=== PATIENT | female | born 1970 | race Caucasian/White ===

== ENCOUNTER 2021-04-19 11:19 | Observation (INO) | payer OTHER, SELFPAY ==
--- OUTSIDE RECORDS SUMMARY | 2021-04-19 11:22 | XMS REPORT | Continuity of Care Document ---
:1970 Author Organization [facility] t Address [address] [place] [address] Care Team Providers Name Role Phone Mary Ying Attending Clinician [phone] Cameron Gastelum MD Attending Clinician Problems This patient has no known problems. Allergies, Adverse Reactions, Alerts This patient has no known allergies or adverse reactions. Medications This patient has no known medications. Procedures This patient has no known procedures. Encounters Start End Encounter Admission Attending Care Care Encounter Source Date/Time Date/Time Type Type Clinicians Facility Department ID 2021-01-21 2021-01-21 Outpatient [facility] [id number] 00:00:00 00:00:00 , Wanda [id number] Mary [id number] 2020-05-11 2020-05-11 Office ROSENDO Gastelum [id number] 09:43:12 11:33:48 Visit [facility]il [facility] [id number] [place] [id number] [place] [phone] nal 092 Building Results This patient has no known results.
[2021-04-19 12:22] LABS: Absolute Lymphocytes (CBC) 2.2 K/uL (0.7-4.9); Hematocrit 41.5 % (36.0-45.0); MPV 9.6 fL (7.6-11.3); RBC Red Blood Cell Count 4.85 M/uL (3.86-4.86)
--- NOTE | 2021-04-19 12:24 | EDPHYS ---
Physician Documentation [facility] Name: Cindy Crowley Age: 50 yrs Sex: Female : 1970 Arrival Date: 04/19/2021 Time: 11:26 Bed 18 Private MD: ED Physician Tia Vera HPI: 04/19 12:19 This 50 yrs old Female presents to ER via Ambulatory with complaints of Chest jr8 Pain. 12:19 The patient or guardian reports chest pain that is located primarily in the substernal jr8 area. Onset: acutely, just prior to arrival. The pain radiates to the left arm, left jaw. Associated signs and symptoms: Pertinent positives: lightheadedness. The chest pain is described as squeezing. Duration: The patient or guardian reports a single episode, that is still ongoing, but improving. Modifying factors: The symptoms are alleviated by nothing. the symptoms are aggravated by exertion. Severity of pain: At its worst the pain was moderate in the emergency department the pain has improved mildly. The patient has not experienced similar symptoms in the past. The patient has not recently seen a physician. 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 - Social history:: Smoking status: Patient reports the use of cigarette tobacco products, denies chronic smoking, but will smoke occasionally. ROS: 12:19 Eyes: Negative for injury, pain, redness, and discharge, ENT: Negative for injury, jr8 pain, and discharge, Neck: Negative for injury, pain, and swelling, Abdomen/GI: Negative for abdominal pain, nausea, vomiting, diarrhea, and constipation, Back: Negative for injury and pain, MS/Extremity: Negative for injury and deformity, Skin: Negative for injury, rash, and discoloration, Neuro: Negative for headache, weakness, numbness, tingling, and seizure. 12:19 Respiratory: Negative for shortness of breath, cough, wheezing, and pleuritic chest pain. 12:19 Cardiovascular: Positive for chest pain, Negative for edema, orthopnea, palpitations, paroxysmal nocturnal dyspnea. Exam: 12:19 Constitutional: This is a well developed, well nourished patient who is awake, alert, jr8 and in no acute distress. Neck: Trachea midline, no thyromegaly or masses palpated, and no cervical lymphadenopathy. Supple, full range of motion without nuchal rigidity, or vertebral point tenderness. No Meningismus. Chest/axilla: Normal chest wall appearance and motion. Nontender with no deformity. No lesions are appreciated. Cardiovascular: Regular rate and rhythm with a normal S1 and S2. No gallops, murmurs, or rubs. Normal PMI, no JVD. No pulse deficits. Respiratory: Lungs have equal breath sounds bilaterally, clear to auscultation and percussion. No rales, rhonchi or wheezes noted. No increased work of breathing, no retractions or nasal flaring. Abdomen/GI: Soft, non-tender, with normal bowel sounds. No distension or tympany. No guarding or rebound. No evidence of tenderness throughout. Back: No spinal tenderness. No costovertebral tenderness. Full range of motion. Skin: Warm, dry with normal turgor. Normal color with no rashes, no lesions, and no evidence of cellulitis. MS/ Extremity: Pulses equal, no cyanosis. Neurovascular intact. Full, normal range of motion. Neuro: Awake and alert, GCS 15, oriented to person, place, time, and situation. Cranial nerves II-XII grossly intact. Motor strength 5/5 in all extremities. Sensory grossly intact. Cerebellar exam normal. Normal gait. 12:19 ECG was reviewed by the Attending Physician. [facility] Vital Signs: 11:44 BP 156 / 100; Pulse 57; Resp 15; Temp 97.7; Pulse Ox 99% ; Weight 88.9 kg; Height 5 ft. ss 5 in. (165.10 cm); Pain 5/10; 12:00 BP 157 / 95; Pulse 55; Resp 16 S; Pulse Ox 99% on R/A; ca1 13:00 BP 124 / 86; Pulse 56; Resp 16 S; Pulse Ox 97% on R/A; ca1 14:00 BP 136 / 63; Pulse 48; Resp 18 S; Pulse Ox 99% on R/A; ca1 15:00 BP 124 / 82; Pulse 48; Resp 15 S; Pulse Ox 99% on R/A; ca1 16:00 BP 136 / 77; Pulse 50; Resp 14 S; Pulse Ox 98% on R/A; ca1 11:44 Body Mass Index 32.62 (88.90 kg, 165.10 cm) ss MDM: 12:08 Patient medically screened. jr8 12:22 The patient was given aspirin in the Emergency Department. Data reviewed: vital signs, [facility] nurses notes, lab test result(s), EKG, radiologic studies, plain films. Data interpreted: Pulse oximetry: on room air is 99 %. Interpretation: normal. Counseling: I had a detailed discussion with the patient and/or guardian regarding: the historical points, exam findings, and any diagnostic results supporting the discharge/admit diagnosis, lab results, radiology results, the need for further work-up and treatment in the hospital. 04/19 12:08 Order name: Basic Metabolic Panel; Complete Time: 12:59 [facility] 04/19 12:08 Order name: CBC with Diff; Complete Time: 12:59 [facility] 04/19 12:08 Order name: LFT's; Complete Time: 12:59 [facility] 04/19 12:08 Order name: Magnesium; Complete Time: 12:59 [facility] 04/19 12:08 Order name: NT PRO-BNP; Complete Time: 12:59 [facility] 04/19 12:08 Order name: PT-INR; Complete Time: 12:59 [facility] 04/19 12:08 Order name: Troponin (emerg Dept Use Only); Complete Time: 12:59 [facility] 04/19 13:13 Order name: Troponin I [facility] 04/19 13:17 Order name: Basic Metabolic Panel [facility] 04/19 13:17 Order name: Basic Metabolic Panel [facility] 04/19 13:17 Order name: Lipid Profile [facility] 04/19 13:17 Order name: Lipid Profile [facility] 04/19 13:17 Order name: Troponin I [facility] 04/19 13:17 Order name: Troponin I [facility] 04/19 12:08 Order name: XRAY Chest (1 view); Complete Time: 13:51 [facility] 04/19 12:08 Order name: EKG; Complete Time: 12:10 [facility] 04/19 12:08 Order name: Cardiac monitoring; Complete Time: 12:09 [facility] 04/19 13:17 Order name: CONS Physician Consult [facility] 04/19 13:17 Order name: Heart Healthy [facility] 04/19 13:17 Order name: Troponin I [facility] 04/19 13:18 Order name: Echo with Doppler [facility] 04/19 13:18 Order name: EKG Electrocardiogram [facility] 04/19 13:18 Order name: EKG Electrocardiogram [facility] 04/19 13:18 Order name: EKG Electrocardiogram [facility] 04/19 13:18 Order name: CBC with Automated Diff [facility] 04/19 13:18 Order name: CBC with Automated Diff [facility] 04/19 13:46 Order name: COVID-19 : Document "Date of Symptom Onset" if Symptomatic. ca1 04/19 15:31 Order name: SARS-COV-2 RT PCR; Complete Time: 15:41 [facility] 04/19 12:08 Order name: EKG - Nurse/Tech; Complete Time: 12:09 8 04/19 12:08 Order name: IV Saline Lock; Complete Time: 12: jr8 04/19 12:08 Order name: Labs collected and sent; Complete Time: 12: jr8 04/19 12:08 Order name: O2 Per Protocol; Complete Time: 12: jr8 04/19 12:08 Order name: O2 Sat Monitoring; Complete Time: 12:09 EC:19 Rate is 52 beats/min. Rhythm is regular, Sinus bradycardia. QRS [place] is Normal. [place] jr8 interval is normal at 112 msec. QRS interval is normal at 82 msec. QT interval is normal at 437 msec. No Q waves. T waves are Inverted in leads I, II, III, aVF, V3, V4, V5, V6. T waves are Flattened in lead aVL. No ST changes noted. Clinical impression: Cardiac ischemia and Sinus bradycardia. Interpreted by me. Reviewed by me. Administered Medications: 12:13 Drug: Aspirin Chewable Tablet 324 mg Route: PO; ca1 13:45 Follow up: Response: No adverse reaction; Pain is decreased ca1 12:15 Drug: Nitroglycerin 0.4 mg Route: Sublingual; ca1 12:20 Drug: Nitroglycerin 0.4 mg Route: Sublingual; ca1 13:45 Follow up: Response: No adverse reaction; Pain is decreased ca1 Disposition: 04/20 14:37 Co-signature as Attending Physician, Tia Vera MD. ma2 Disposition: 04/19/21 12:23 Hospitalization ordered by Tia Denis for Observation. Preliminary diagnosis are Unstable angina, Abnormal electrocardiogram [ECG] [EKG]. - Bed requested for Telemetry/MedSurg (observation). - Status is Observation. ca1 - Condition is Stable. - Problem is new. - Symptoms have improved. Signatures: Dispatcher [employer] EDMS Danya Calle RN RN dw Odessa Cast RN RN ss Rafat Chavira, ADDIE REAL jr8 Tia Vera MD MD tn2 Neli Suggs RN RN ca1 Corrections: (The following items were deleted from the chart) 04/19 12:23 12:23 Hospitalization Ordered by Tia Denis MD for Observation. Preliminary jr8 diagnosis is Unstable angina. Bed requested for Telemetry/MedSurg (observation). Status is Observation. Condition is Stable. Problem is new. Symptoms have improved. jr8 16:33 12:23 04/19/2021 12:23 Hospitalization Ordered by Tia Denis MD for Observation. dw Preliminary diagnosis is Unstable angina; Abnormal electrocardiogram [ECG] [EKG]. Bed requested for Telemetry/MedSurg (observation). Status is Observation. Condition is Stable. Problem is new. Symptoms have improved. jr8 17:02 16:33 04/19/2021 12:23 Hospitalization Ordered by Tia Denis MD for Observation. ca1 Preliminary diagnosis is Unstable angina; Abnormal electrocardiogram [ECG] [EKG]. Bed requested for Telemetry/MedSurg (observation). Status is Observation. Condition is Stable. Problem is new. Symptoms have improved. dw
--- NOTE | 2021-04-19 12:24 | ER ---
Nurse's Notes [facility] Name: Cindy Crowley Age: 50 yrs Sex: Female : 1970 Arrival Date: 04/19/2021 Time: 11:26 Bed 18 Private MD: Diagnosis: Unstable angina;Abnormal electrocardiogram [ECG] [EKG] Presentation: 04/19 11:44 Chief complaint: Patient states: Chest pain that began 15 minutes ago while shopping at [employer]. Pt reports that the pain has improved, but feels slight numbness to her L arm and L side of neck. Coronavirus screen: Client denies travel out of the [place] in the last 14 days. Ebola Screen: Patient denies exposure to infectious person. Patient denies travel to an Ebola-affected area in the 21 days before illness onset. Initial Sepsis Screen: Does the patient meet any 2 criteria? No. Patient's initial sepsis screen is negative. Does the patient have a suspected source of infection? No. Patient's initial sepsis screen is negative. Risk Assessment: Do you want to hurt yourself or someone else? Patient reports no desire to harm self or others. Onset of symptoms was April 19, 2021. 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 - Social history:: Smoking status: Patient reports the use of cigarette tobacco products, denies chronic smoking, but will smoke occasionally. Screenin:55 Abuse screen: Denies threats or abuse. Denies injuries from another. Nutritional ca1 screening: No deficits noted. Tuberculosis screening: No symptoms or risk factors identified. Fall Risk IV access (20 points). Assessment: 11:55 General: Appears in no apparent distress. comfortable, Behavior is calm, cooperative, ca1 appropriate for age. Pain: Complains of pain in anterior aspect of left upper chest Pain radiates to left arm and neck Pain currently is 5 out of 10 on a pain scale. at worst was 10 out of 10 on a pain scale. Quality of pain is described as pressure, squeezing, Pain began 30 min ago. Is continuous. Neuro: Level of Consciousness is awake, alert, obeys commands, Oriented to person, place, time, situation. Cardiovascular: Heart tones S1 S2 present Capillary refill < 3 seconds Patient's skin is warm and dry. Rhythm is sinus bradycardia. Cardiovascular: Reports chest pain, lightheadedness. Respiratory: Airway is patent Respiratory effort is even, unlabored, Respiratory pattern is regular, symmetrical, Breath sounds are clear bilaterally. GI: Abdomen is flat, non-distended, Bowel sounds present X 4 quads. Abd is soft and non tender X 4 quads. : No signs and/or symptoms were reported regarding the genitourinary system. EENT: No signs and/or symptoms were reported regarding the EENT system. Derm: Skin is intact, is healthy with good turgor, Skin is pink, warm \T\ dry. Musculoskeletal: Circulation, motion, and sensation intact. Capillary refill < 3 seconds. 12:55 Reassessment: Patient appears in no apparent distress at this time. Patient and/or ca1 family updated on plan of care and expected duration. Pain level reassessed. Patient is alert, oriented x 3, equal unlabored respirations, skin warm/dry/pink. 13:43 Reassessment: Patient appears in no apparent distress at this time. Patient and/or ca1 family updated on plan of care and expected duration. Pain level reassessed. Patient is alert, oriented x 3, equal unlabored respirations, skin warm/dry/pink. 14:30 Reassessment: Patient appears in no apparent distress at this time. Patient and/or ca1 family updated on plan of care and expected duration. Pain level reassessed. Patient is alert, oriented x 3, equal unlabored respirations, skin warm/dry/pink. 15:20 Reassessment: Patient appears in no apparent distress at this time. Patient and/or ca1 family updated on plan of care and expected duration. Pain level reassessed. Patient is alert, oriented x 3, equal unlabored respirations, skin warm/dry/pink. 16:10 Reassessment: Patient appears in no apparent distress at this time. Patient and/or ca1 family updated on plan of care and expected duration. Pain level reassessed. Patient is alert, oriented x 3, equal unlabored respirations, skin warm/dry/pink. Vital Signs: 11:44 BP 156 / 100; Pulse 57; Resp 15; Temp 97.7; Pulse Ox 99% ; Weight 88.9 kg; Height 5 ft. ss 5 in. (165.10 cm); Pain 5/10; 12:00 BP 157 / 95; Pulse 55; Resp 16 S; Pulse Ox 99% on R/A; ca1 13:00 BP 124 / 86; Pulse 56; Resp 16 S; Pulse Ox 97% on R/A; ca1 14:00 BP 136 / 63; Pulse 48; Resp 18 S; Pulse Ox 99% on R/A; ca1 15:00 BP 124 / 82; Pulse 48; Resp 15 S; Pulse Ox 99% on R/A; ca1 16:00 BP 136 / 77; Pulse 50; Resp 14 S; Pulse Ox 98% on R/A; ca1 11:44 Body Mass Index 32.62 (88.90 kg, 165.10 cm) ss ED Course: 11:26 Patient arrived in ED. bp1 11:46 Triage completed. ss 11:47 Arm band placed on right wrist. ss 11:55 Patient has correct armband on for positive identification. Placed in gown. Bed in low ca1 position. Call light in reach. Side rails up X2. teletypesetter monitor on. Pulse ox on. NIBP on. Warm blanket given. 12:08 Rafat Chavira PA is PHCP. jr8 12:08 Tia Vera MD is Attending Physician. jr8 12:08 Neli Suggs, RN is Primary Nurse. ca1 12:08 No provider procedures requiring assistance completed. Initial lab(s) drawn, by or, ca1 sent to lab. EKG done, by ED staff, reviewed by Rafat REAL. Inserted saline lock: 22 gauge in right antecubital area, using aseptic technique. Blood collected. Patient maintains SpO2 saturation greater than 95% on room air. 12:23 Tia Denis MD is Hospitalizing Provider. jr8 13:24 XRAY Chest (1 view) In Process Unspecified. EDMS 16:52 Patient admitted, IV remains in place. ca1 Administered Medications: 12:13 Drug: Aspirin Chewable Tablet 324 mg Route: PO; ca1 13:45 Follow up: Response: No adverse reaction; Pain is decreased ca1 12:15 Drug: Nitroglycerin 0.4 mg Route: Sublingual; ca1 12:20 Drug: Nitroglycerin 0.4 mg Route: Sublingual; ca1 13:45 Follow up: Response: No adverse reaction; Pain is decreased ca1 Outcome: 12:23 Decision to Hospitalize by Provider. rashad 16:52 Admitted to Med/surg accompanied by tech, via wheelchair, room 209, with chart, Report ca1 called to AKASH Ham 16:53 Condition: stable ca1 17:02 Patient left the ED. ca1 Signatures: Dispatcher [employer] EDMS Odessa Cast RN RN Rafat Chavira PA PA jr8 Neli Suggs RN RN [facility] Corrections: (The following items were deleted from the chart) 11:53 11:44 Acuity: NAVJOT 3 ss
[2021-04-19] MEDS ORDERED: NITROGLYCERIN 0.4 MG/TAB SL ONE (12:28)
[2021-04-19] MEDS ORDERED: ASPIRIN 81 MG CHEWABLE TABLET ONE (12:31)
[2021-04-19 12:34] LABS: Protime INR 0.94
[2021-04-19 12:54] LABS: ALT/SGPT 26 U/L (12-78); AST/SGOT 18 U/L (15-37); Albumin 4.3 g/dL (3.4-5.0); Alkaline Phosphatase 81 U/L (45-117); BUN Blood Urea Nitrogen 17 mg/dL (7-18); Bicarbonate 29 mmol/L (21-32); Bilirubin Direct 0.1 mg/dL (0-0.2); Bilirubin Total 0.5 mg/dL (0.2-1.0); Glucose Level 84 mg/dL (74-106); Magnesium 2.2 mg/dL (1.8-2.4); NT PRO-BNP 18 pg/mL (<125); Potassium 3.4 mmol/L (3.5-5.1); Protein, Total 7.7 g/dL (6.4-8.2); Sodium Level 140 mmol/L (136-145); Troponin (Emerg Dept Use Only) < 0.02 ng/mL (0.0-0.045)
[2021-04-19] MEDS ORDERED: MORPHINE 4 MG/ML SYR IV PRN (13:13)
[2021-04-19] MEDS ORDERED: CLOPIDOGREL 75 MG TABLET PO ONE (13:13)
--- NOTE | 2021-04-19 13:50 | RAD REPORT ---
EXAM DESCRIPTION: RAD - Chest Single View - 04/19/2021 1:24 pm CLINICAL HISTORY: CHEST PAIN COMPARISON: None TECHNIQUE: AP portable chest image was obtained 04/19/2021 1:24 pm . FINDINGS: Lung volumes are relatively low accentuating interstitial pattern. Body habitus and portab le technique further accentuate the chest findings. No peripheral mass or consolidation. No significant failure or volume overload. Heart and vasculature are normal. No measurable pleural effusion and no pneumothorax. No acute bony abnormality seen. No acute aortic findings suspected. IMPRESSION: No acute cardiopulmonary process.
[2021-04-19 17:17] VITALS: O2SAT 98
[2021-04-19 18:28] VITALS: BMI 32.5
[2021-04-19] MEDS: ENOXAPARIN 100 MG/ML SYR SQ SCH (20:21)
[2021-04-19] MEDS ORDERED: HYDRALAZINE HCL 20 MG/ML VIAL IV PRN (20:42)
[2021-04-19] MEDS: METOPROLOL TAR 50 MG TAB PO SCH (20:47)
[2021-04-19] MEDS ORDERED: ATORVASTATIN 40 MG TAB PO SCH (21:00)
[2021-04-20] MEDS: ACETAMINOPHEN 500 MG TAB PO PRN ×2 (02:11→08:55)
[2021-04-20 06:07] LABS: Absolute Lymphocytes (CBC) 2.7 K/uL (0.7-4.9); Hematocrit 38.7 % (36.0-45.0); Lymphocytes % 36.7 % (15.3-44.8); MPV 9.2 fL (7.6-11.3); RBC Red Blood Cell Count 4.53 M/uL (3.86-4.86)
[2021-04-20 06:35] LABS: Potassium 3.4 mmol/L (3.5-5.1)
[2021-04-20] MEDS: METOPROLOL TAR 50 MG TAB PO SCH (08:50)
[2021-04-20] MEDS: ENOXAPARIN 100 MG/ML SYR SQ SCH (08:52)
[2021-04-20] MEDS ORDERED: ASPIRIN EC 81 MG TAB PO SCH (09:00)
[2021-04-20] MEDS ORDERED: CLOPIDOGREL 75 MG TABLET PO SCH (09:00)
--- NOTE | 2021-04-20 09:44 | EKG ---
Test Date: 2021-04-19 Test Time: 20:35:39 Solution Analyst: RT Sutherland MEASUREMENT RESULTS: Intervals: Rate: 53 ND: 126 QRSD: 84 QT: 502 QTc: 471 [place]: P: 56 ND: 126 QRS: 62 T: 225 INTERPRETIVE STATEMENTS: Sinus bradycardia Low voltage QRS Cannot rule out Anterior infarct, age undetermined ST & T wave abnormality, consider inferolateral ischemia Abnormal ECG No previous ECG available for comparison Electronically Signed On 04-20-21 09:43:33 CDT by Javan Dodge
--- NOTE | 2021-04-20 09:46 | EKG ---
Test Date: 2021-04-19 Test Time: 12:00:02 Tobacco Packing Machine Operator: ERIK MEASUREMENT RESULTS: Intervals: Rate: 52 OR: 112 QRSD: 82 QT: 470 QTc: 437 [place]: P: 58 OR: 112 QRS: 47 T: 244 INTERPRETIVE STATEMENTS: Sinus bradycardia Low voltage QRS ST & T wave abnormality, consider inferolateral ischemia Abnormal ECG No previous ECG available for comparison Electronically Signed On 04-20-21 09:43:47 CDT by Javan Dodge
--- NOTE | 2021-04-20 10:06 | P.DS ---
Discharge Date: 04/20/21 Disposition: ROUTINE DISCHARGE Reason for Admission: Chest pain rule out acute coronary syndrome - Problems (1) Chest pain, rule out acute myocardial infarction Current Visit: Yes Status: Acute (2) History of hypertension Current Visit: Yes Status: Acute Brief History of Present Illness: Patient is a 50-year-old female came to the hospital with chest discomfort. Pain was in the sternal region and radiated to her left side of her neck and her left arm. She also had diaphoresis and shortness of breath. She has had similar chest pain in the past. Her initial troponins and EKG not show any substantial changes from her prior EKGs. It was noted that she had some T-wave inversion. She was seen as [facility] few years ago with similar complaints and was sent to what sounds like [facility]. She had cardiac workup done including stress test which did not reveal any abn ormality. She did not have a cardiac catheterization. She was discharged for outpatient follow-up. At this time, will admit her to the hospital to be ruled out for acute coronary syndrome. Cardiology consultation has been obtained as well. Vital Signs/Physical Exam: Temp Pulse Resp BP Pulse Ox 97.8 F 48 L 19 144/77 H 100 04/20/21 10:06 04/20/21 10:06 04/20/21 10:06 04/20/21 10:06 04/20/21 10:06 Laboratory Data at Discharge: WBC 7.40 K/uL (4.3-10.9) 04/20/21 05:48 Hgb 13.1 g/dL (12.0-15.0) 04/20/21 05:48 Hct 38.7 % (36.0-45.0) 04/20/21 05:48 Plt Count 149 K/uL (152-406) L 04/20/21 05:48 PT 10.8 SECONDS (9.5-12.5) 04/19/21 12:13 INR 0.94 04/19/21 12:13 Sodium 142 mmol/L (136-145) 04/20/21 05:48 Potassium 3.4 mmol/L (3.5-5.1) L 04/20/21 05:48 BUN 17 mg/dL (7-18) 04/20/21 05:48 Creatinine 1.08 mg/dL (0.55-1.3) 04/20/21 05:48 Glucose 79 mg/dL (74-106) 04/20/21 05:48 Magnesium 2.2 mg/dL (1.8-2.4) 04/19/21 12:13 Total Bilirubin 0.5 mg/dL (0.2-1.0) 04/19/21 12:13 AST 18 U/L (15-37) 04/19/21 12:13 ALT 26 U/L (12-78) 04/19/21 12:13 Alkaline Phosphatase 81 U/L (45-117) 04/19/21 12:13 Troponin I < 0.02 ng/mL (0.0-0.045) 04/20/21 05:48 Triglycerides 216 mg/dL (<150) H 04/20/21 05:48 Cholesterol 224 mg/dL (<200) H 04/20/21 05:48 HDL Cholesterol 30 mg/dL (40-60) L 04/20/21 05:48 Cholesterol/HDL Ratio 7.47 04/20/21 05:48 Home Medications: Levothyroxine [Synthroid*] 75 mcg PO DAILY 04/19/21 Losartan Potassium [Cozaar] 25 mg PO DAILY 04/19/21 hydroCHLOROthiazide [Hydrochlorothiazide*] 25 mg PO DAILY 04/19/21 Physician Discharge Instructions: OK TO DC IV AND DC HOME FOLLOW-UP WITH PRIMARY CARE PROVIDER IN 1-2 WEEKS FOLLOW-UP WITH CARDIOLOGY IN 1-2 WEEKS RETURN TO THE ER IF symptoms worsen CALL or TEXT DR. HENDERSON AT [phone] IF ANY QUESTIONS REGARDING HOSPITAL STAY. PLEASE CALL THE FLOOR AT [phone] IF ANY MEDICATION OR NURSING QUESTIONS. Diet: AHA Activity: Fall precautions Followup: Unknown,U [Primary Care Provider] -
--- NOTE | 2021-04-20 10:06 | P.HP ---
Certification for Inpatient Patient admitted to: Observation With expected LOS: <2 Midnights Patient will require the following post-hospital care: None Practitioner: I am a practitioner with admitting privileges, knowledge of patient current condition, hospital course, and medical plan of care. Services: Services provided to patient in accordance with Admission requirements found in Title 42 Section 412.3 of the Code of Federal Regulations Patient History Date of Service: 04/19/21 Reason for admission: Chest pain rule out acute coronary syndrome History of Present Illness: Patient is a 50-year-old female came to the hospital with chest discomfort. Pain was in the sternal region and radiated to her left side of her neck and her left arm. She also had diaphoresis and shortness of breath. She has had similar chest pain in the past. Her initial troponins and EKG not show any substantial changes from her prior EKGs. It was noted that she had some T-wave inversion. She was seen as [facility] few years ago with similar complaints and was sent to what sounds like [facility]. She had cardiac workup done including stress test which did not reveal any abnormality. She did not have a cardiac catheterization. She was discharged for outpatient follow-up. At this time, will admit her to the hospital to be r uled out for acute coronary syndrome. Cardiology consultation has been obtained as well. Allergies codeine Allergy (Verified 04/19/21 15:11) Nausea/Vomiting Home Medications: Levothyroxine [Synthroid*] 75 mcg PO DAILY 04/19/21 Losartan Potassium [Cozaar] 25 mg PO DAILY 04/19/21 hydroCHLOROthiazide [Hydrochlorothiazide*] 25 mg PO DAILY 04/19/21 - Past Medical/Surgical History Has patient received pneumonia vaccine in the past: No Diabetic: No -: HTN -: Thyroidectomy -: - Family History Mother Medical History: Heart disease, Diabetes Father Medical History: Hypertension - Social History Smoking Status: Never smoker Place of Residence: Home Review of Systems 10-point ROS is otherwise unremarkable Physical Examination - Vital Signs Temperature: 97.8 F Blood Pressure: 144/77 Pulse: 48 Respirations: 19 Pulse Ox (%): 100 - Physical Exam General: Alert, In no apparent distress, Oriented x3 HEENT: Atraumatic, PERRLA, Mucous membr. moist/pink, EOMI, Sclerae nonicteric Neck: Supple, 2+ carotid pulse no bruit, No LAD, Without JVD or thyroid abnormality Respiratory: Clear to auscultation bilaterally, Normal air movement Cardiovascular: Regular rate/rhythm, Normal S1 S2, No murmurs Gastrointestinal: Normal bowel sounds, Soft and benign, Non-distended, No tenderness Musculoskeletal: No clubbing, No swelling, No tenderness Integumentary: No rashes Neurological: Normal gait, Normal speech, Normal strength at 5/5 x4 extr, Normal tone, Sensation intact, Cranial nerves 3-12 intact, Normal affect Lymphatics: No axilla or inguinal lymphadenopathy - Studies Laboratory Data (last 24 hrs) 04/19/21 12:13: PT 10.8, INR 0.94 04/19/21 12:13: WBC 8.20, Hgb 13.7, Hct 41.5, Plt Count 185 04/19/21 12:13: Sodium 140, Potassium 3.4 L, BUN 17, Creatinine 1.44 H, Glucose 84, Magnesium 2.2, Total Bilirubin 0.5, AST 18, ALT 26, Alkaline Phosphatase 81 Assessment & Plan - Problems (Diagnosis) (1) Chest pain, rule out acute myocardial infarction Current Visit: Yes Status: Acute (2) History of hypertension Current Visit: Yes Status: Acute - Plan 1. Serial troponins and EKG 2. Appreciate Cardiology consultation 3. Echocardiogram and stress test as an outpatient if cardiology is agreeable 4. Anti-platelet therapy, anti coagulation, beta-jesus, statin, and O2 as needed 5. IV morphine for pain 6. Nitro p.r.n. Discharge Plan: Home Plan to discharge in: 24 Hours - Advance Directives Does patient have a Living Will: No Does patient have a Durable POA for Healthcare: No - Code Status/Comfort Care Code Status Assessed: Yes Code Status: Full Code Critical Care: No Time Spent Managing PTS Care (In Minutes): 45
--- NOTE | 2021-04-20 11:54 | CON ---
Date of Consultation: 04/19/2021 Reason For Consultation: Admitted to Dr. Denis on 04/19/2021 for chest pain. I saw the patient on . History Of Present Illness: Ms. Crowley is 50. Has a history of hypertension, hypothyroidism. Came in with 15 minutes episode with nausea, chest pain, and jaw pain [facility] When she came into the emergency room, her chest x-ray was normal, EKG was normal, blood work w as normal except for the creatinine of 1.44. She is known to have some renal insufficiency. She see luis f Ying, nurse practitioner in [place] for her primary care. She is now completely asymptomatic. Her symptoms were not exertional. This is her first episode. Does not have a family history of heart disease. Does not smoke. Does not have diabetes or dyslipidemia. Past Medical History: Includes hypertension and hypothyroidism. Allergies: INCLUDE CODEINE. Review of Systems: Negative. Social History: Negative. Family History: Negative. Medications: At home are none. Physical Examination: Vital Signs: Stable, afebrile. HEENT: Negative. Neck: Supple with no bruit. Chest: Clear. Cardiac: Revealed a regular rhythm and rate. No murmurs, gallops, or rubs. Abdomen: Benign. Extremities: Revealed no clubbing, cyanosis, or edema. Diagnostic Data: All normal. Chest x-ray was negative. Creatinine is 1.44. Impression And Plan: Chest pain that is very concerning for heart disease; however, EKG and chest x- ray, and troponin and BNP were all normal. She is pain-free now. This certainly could be coronary a rtery disease related or gastroesophageal reflux related. She does have a history of hypertension, o besity. Denied family history of diabetes or dyslipidemia or tobacco use. I am comfortable with her going home, but need to get a stress test, MPI outpatient as well as possible echocardiogram which w as done is normal. I think she should go home on a low-dose beta-jesus, aspirin, statin in additio n to whatever she takes at home, and I will see her in the office in the very near future. ANNETTE/MOOSE Voice ID: [id number] Report ID: [id number]
[2021-04-20 12:38] VITALS: BP 106/60; TEMP 98.2
--- NOTE | 2021-04-22 08:18 | ECHO ---
HEIGHT: 5 ft 5 in WEIGHT: 195 lb 15.855 oz DATE OF STUDY: 04/19/[address]: Tia Denis MD 2-DIMENSIONAL: YES M.MODE: YES DOPPLER: YES COLOR FLOW: YES TDS: NO PORTABLE: NO DEFINITY: NO BUBBLE STUDY: NO DIAGNOSIS: CHEST PAIN/ RULE OUT ACUTE CORONARY SYNDROME CARDIAC HISTORY: CATHERIZATION: NO SURGERY: NO PROSTHETIC VALVE: NO PACEMAKER: NO MEASUREMENTS (cm) DIASTOLIC (NORMALS) SYSTOLIC (NORMALS) IVSd 0.9 (0.6-1.2) LA Diam 2.6 (1.9-4.0) LVEF 55% LVIDd 4.4 (3.5-5.7) LVIDs 3.2 (2.0-3.5) %FS 28% LVPWd 0.9 (0.6-1.2) Ao Diam 2.6 (2.0-3.7) 2 DIMENSIONAL ASSESSMENT: RIGHT ATRIUM: LEFT ATRIUM: RIGHT VENTRICLE: LEFT VENTRICLE: TRICUSPID VALVE: MITRAL VALVE: PULMONIC VALVE: AORTIC VALVE: PERICARDIAL EFFUSION: AORTIC ROOT: LEFT VENTRICULAR WALL MOTION: DOPPLER/COLOR FLOW: COMMENTS: NORMAL 2D ECHO WITH DOPPLER. NO WALL MOTION ABNORMALITY. NO EFFUSION. TECHNOLOGIST: RENATO PATRICK
== END 2021-04-20 15:41 | disposition home or self-care (01) ==
LOC: ER 11:19 → ERHOLD 13:55 → 2ND 16:54
PROVIDERS: ADMIT Hospitalist; ATTEND Hospitalist
DX: R07.9 Chest pain, unspecified (principal); I10 Essential (primary) hypertension; E03.9 Hypothyroidism, unspecified; E66.9 Obesity, unspecified; Z68.32 Body mass index [BMI] 32.0-32.9, adult; Z20.822 Contact with and (suspected) exposure to COVID-19
CPT/HCPCS: 36415; 71045; 80048; 80061; 80076; 83735; 83880; 84484; 85025; 85610; 93005; 93306; 99285; G0378; J1650; U0003

== ENCOUNTER 2021-11-23 09:32 | Emergency (ER) | payer BC, SELFPAY ==
--- OUTSIDE RECORDS SUMMARY | 2021-11-23 09:35 | XMS REPORT | Continuity of Care Document ---
:1970 Author Organization [facility] t Address [address] [place] [address] Care Team Providers Name Role Phone Ernesto GLASGOW Primary Care Physician Unavailable SALLIE Attending Clinician Unavailable Mary Ying Attending Clinician [phone] Nurse, [facility] Attending Clinician Unavailable Julia BUSTOS T Attending Clinician Unavailable RAVEN Attending Clinician Unavailable Karen Attending Clinician Unavailable Franky Gastelum MD Attending Clinician FRANKY GASTELUM Attending Clinician Unavailable FRANKY GASTELUM Attending Clinician Unavailable FER Attending Clinician Unavailable SALLIE Admitting Clinician Unavailable Karen Admitting Clinician Unavailable FER Admitting Clinician Unavailable Payers Payer Name Policy Type Policy Number Effective Date Expiration Date S ource Problems This patient has no known problems. Allergies, Adverse Reactions, Alerts Allergy Allergy Status Severity Reaction(s) Onset Inactive Treating Comm ents Source Name Type Date Date Clinician CODEINE DRUG Active Hives 2020-0 Univers INGREDI 2-17 ity of 00:00: [place] [address] Medical Branch Codeine Propensi Active Hives 2020-0 Univers ty to 2-17 ity of adverse 00:00: [place] reaction [address] [place] [address] Social History Social Habit Start Date Stop Date Quantity Comments Source Exposure to Not sure University SARS-CoV-2 [facility] (event) Branch Alcohol intake 2020-05-11 2020-05-11 Current drinker Unive rsity of 00:00:00 00:00:00 of alcohol [facility] (finding) Branch Tobacco use and 2020-05-11 2020-05-11 Never used Universit y of exposure 00:00:00 00:00:00 [facility] Sex Assigned At [birth year] Universit y of 00:00:00 00:00:00 [facility] Smoking Status Start Date Stop Date Source Never smoker [facility] Medications Ordered Filled Start Stop Current Ordering Indication Dosage Frequency Signature Comments Components Source Medication Medication Date Date Medication? Clinician (SIG) Name Name meclizine 2020-0 Yes [id number] 25mg Take 1 U nivers 25 mg 7-10 tablet by ity of tablet 00:00: mouth 3 [place] 00 (three) Medical times Branch daily as needed for Dizziness. meclizine 2020-0 Yes [id number] 25mg Take 1 U nivers 25 mg 7-10 tablet by ity of tablet 00:00: mouth 3 [place] [address] (three) Medical times Branch daily as needed for Dizziness. methylPREDN 2020-0 Yes [id number] Take by Univers ISolone 4 2-18 mouth ity of mg tablets 00:00: [place]INSTRU [place] 00 CTIONS. Medical follow Branch package directions lidocaine 5 2020-0 Yes [id number] 1{patch Apply 1 Univers % (700 2-18 } Patch to ity of mg/patch) 00:00: area(s) [place] patch 00 every 8 Medical (eight) Branch hours as needed for Localized pain. methylPREDN 2020-0 Yes [id number] Take by Univers ISolone 4 2-18 mouth ity of mg tablets 00:00: [place]INSTRU [place] 00 CTIONS. Medical follow Branch package directions lidocaine 5 2020-0 Yes [id number] 1{patch Apply 1 Univers % (700 2-18 } Patch to ity of mg/patch) 00:00: area(s) [place] patch 00 every 8 Medical (eight) Branch hours as needed for Localized pain. Procedures This patient has no known procedures. Encounters Start End Encounter Admission Attending Care Care Encounter Source Date/Time Date/Time Type Type Clinicians Facility Department ID 2021-09-13 2021-09-13 Outpatient [facility] [address] 01:44:00 01:44:00 _L [facility] 2021-08-09 2021-08-09 Outpatient [facility] [address] 02:28:00 02:28:00 _L 008 [facility] 2021-07-10 2021-07-10 Outpatient [facility] [address] 09:48:00 09:48:00 _L 908 [facility] 2021-07-10 2021-07-10 Outpatient [facility] [id number] 00:00:00 00:00:00 , Wanda [id number] Mary [id number] 2021-07-06 2021-07-06 Outpatient [facility] [address] 01:02:00 01:02:00 _L 904 [facility] 2021-07-03 2021-07-03 Outpatient [facility] [address] 03:58:00 03:58:00 _L 901 [facility] 2021-07-03 2021-07-03 Outpatient [facility] [id number] 00:00:00 00:00:00 , Wanda [id number] Mary [id number] 2021-06-26 2021-06-26 Telephone Nurse, Reynaldo [facility] [id number] Univers 00:00:00 00:00:00 [facility] [id number] ity of [facility] [id number] Gus as Thony?Blea [phone] [address] Medical Office Building 2021-06-26 2021-06-26 Letter MOMO Dumont [id number] Univers 00:00:00 00:00:00 (Out) Claire KLEIN [id number] [facility] [id number] Gus as [phone] [address] 2021-06-24 2021-06-24 Outpatient R [facility] [id number] Univers 19:15:00 19:15:00 [id number] [facility] 2021-06-24 2021-06-24 Outpatient R RAVEN [facility] [id number] Univers 19:15:00 19:15:00 ARTURO [facility] 2021-05-16 2021-05-16 Outpatient [facility] [address] 05:14:00 05:14:00 _L 715 [facility] 2021-05-16 2021-05-16 Outpatient [facility] [id number] 00:00:00 00:00:00 , Wanda [id number] Mary [id number] 2021-01-21 2021-01-21 Outpatient [facility] [address] 11:38:00 11:38:00 _L 322 [facility] 2021-01-21 2021-01-21 Outpatient [facility] [id number] 00:00:00 00:00:00 , Wanda [id number] Mary [id number] 2020-08-09 2020-08-09 Outpatient Karen MMG MMG [id number] [place] 11:36:00 11:36:00 [facility] 2020-05-11 2020-05-11 Office Oriana [facility] [id number] 09:43:12 11:33:48 Visit Sunil Keller [id number] Claire [id number] He[place] [id number] [id number] [id number] [facility] 2020-05-11 2020-05-11 Outpatient SUNIL BAER [facility] [id number] Univers 10:00:00 10:00:00 SUNIL GASTELUM [facility] 2019-12-19 2019-12-20 Emergency X FER, [facility] ERT [id number] Univers 22:24:54 01:21:00 CHAPIN sigala of [facility] Results This patient has no known results.
[2021-11-23] MEDS ORDERED: dexAMETHasone 4 MG/ML VIAL ONE (09:57)
[2021-11-23] MEDS ORDERED: dexAMETHasone 10 MG/ML VIAL ONE (09:58)
[2021-11-23 11:47] LABS: SARS-COV-2 RT PCR POSITIVE (NEGATIVE)
--- NOTE | 2021-11-23 11:49 | ER ---
Nurse's Notes [facility] Name: Cindy Crowley Age: 51 yrs Sex: Female : 1970 Arrival Date: 11/23/2021 Time: 09:37 Bed 12 Private MD: Diagnosis: Coronavirus infection, unspecified Presentation: 11/23 09:48 Chief complaint: Patient states: Pt c/o body aches, chills, diarrhea, cp, and headache ic1 since Thursday. States she received a neg covid test result on Thursday, but symptoms are worsening. Pt denies sob. Coronavirus screen: Vaccine status: Patient reports being unvaccinated. Client denies travel out of the [place] in the last 14 days. Ebola Screen: No symptoms or risks identified at this time. Initial Sepsis Screen: Does the patient meet any 2 criteria? No. Patient's initial sepsis screen is negative. Does the patient have a suspected source of infection? No. Patient's initial sepsis screen is negative. Risk Assessment: Do you want to hurt yourself or someone else? Patient reports no desire to harm self or others. Onset of symptoms is unknown. 09:48 Method Of Arrival: Ambulatory ic1 09:48 Acuity: NAVJOT 4 ic1 Triage Assessment: 09:51 Headache History: Denies prior headaches. General: Appears in no apparent distress. ic1 Behavior is calm, cooperative. Pain: Pain Pain began 2-3 days ago. Also complains of no other associated symptoms. Neuro: No deficits noted. 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 - Social history:: Smoking status: Smoking status: Patient denies any tobacco usage or history of. Screenin:00 Abuse screen: Denies threats or abuse. Denies injuries from another. Nutritional elias screening: No deficits noted. Tuberculosis screening: No symptoms or risk factors identified. Fall Risk None identified. Assessment: 10:00 Pain: Complains of pain in right ear, left ear, chest and neck. elias Vital Signs: 09:48 BP 134 / 66; Pulse 71; Resp 18; Temp 99.6(O); Pulse Ox 99% on R/A; Weight 88.6 kg (M); ic1 ED Course: 09:37 Patient arrived in ED. as 09:38 Raulito Richmond PA is PHCP. [facility] 09:38 Oliver Self MD is Attending Physician. jm 09:50 Triage completed. ic1 09:51 Arm band placed on. ic1 09:59 COVID-19/FLU A+B Sent. elias 10:00 Patient has correct armband on for positive identification. Bed in low position. elias 10:00 COVID-19/FLU A+B (Document "Date of Onset" if Symptomatic) Sent. elias 10:00 No provider procedures requiring assistance completed. elias 10:01 Strep Sent. ic1 12:02 Patient did not have IV access during this emergency room visit. elias Administered Medications: :59 Drug: Decadron (dexamethasone) 10 mg Route: IM; Site: right gluteus; elias Outcome: 11:48 Discharge ordered by . [facility] 12:02 Discharged to home ambulatory. elias 12:02 Condition: good 12:02 Discharge instructions given to patient, Prescriptions given X 1. 12:02 Patient left the ED. elias Signatures: Raulito Richmond PA PA jmm Martinez, Amelia as MaryStagerLori, RN RN Annmarie Bess RN RN ic1 Corrections: (The following items were deleted from the chart) 09:52 09:50 Allergies: Codeine; ic1 ic1
--- NOTE | 2021-11-23 11:49 | EDPHYS ---
Physician Documentation [facility] Name: Cindy Crowley Age: 51 yrs Sex: Female : 1970 Arrival Date: 11/23/2021 Time: 09:37 Bed 12 Private MD: ED Physician Oliver Self HPI: 11/23 10:04 This 51 yrs old Female presents to ER via Ambulatory with complaints of Headache, Sore jmm Throat, Cough, Ear Pain. 10:04 Onset: The symptoms/episode began/occurred gradually. Associated signs and symptoms: jmm Pertinent positives: fever. The symptoms are alleviated by nothing. the symptoms are aggravated by nothing. This is a 51 year old female with a history of htn, hypothyroidism that presents to the ED with complaints of sore throat beginning this past Thursday. Patient was tested for covid Thursday, tested negative. Patient complains of burning chest pain on inspiration along with cough, and ear ache. . 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 - Social history:: Smoking status: Smoking status: Patient denies any tobacco usage or history of. ROS: 10:04 Constitutional: Positive for body aches, chills. jmm 10:04 Respiratory: Positive for cough. 10:04 Abdomen/GI: Negative for nausea and vomiting. 10:04 Neuro: Positive for headache. 10:04 All other systems are negative. Exam: 10:04 Constitutional: This is a well developed, well nourished patient who is awake, alert, jmm and in no acute distress. Head/Face: atraumatic. Eyes: EOMI, no conjunctival erythema appreciated ENT: Moist Mucus Membranes Neck: Trachea midline, Supple Chest/axilla: Normal chest wall appearance and motion. Cardiovascular: Regular rate and rhythm. No edema appreciated Respiratory: Normal respirations, no respiratory distress appreciated Abdomen/GI: Non distended, soft Back: Normal ROM Skin: General appearance color normal MS/ Extremity: Moves all extremities, no obvious deformities appreciated, no edema noted to the lower extremities Neuro: Awake and alert, normal gait Psych: Behavior is normal, Mood is normal, Patient is cooperative and pleasant Vital Signs: 09:48 BP 134 / 66; Pulse 71; Resp 18; Temp 99.6(O); Pulse Ox 99% on R/A; Weight 88.6 kg (M); ic1 MDM: 09:53 Patient medically screened. [facility] 11:47 Data reviewed: vital signs, nurses notes. Counseling: I had a detailed discussion with [facility] the patient and/or guardian regarding: the historical points, exam findings, and any diagnostic results supporting the discharge/admit diagnosis, lab results, the need for outpatient follow up, to return to the emergency department if symptoms worsen or persist or if there are any questions or concerns that arise at home. ED course: Patient is alert and non toxic in appearance in the ED. No signs of resp distress. Advised to follow up with pcp and otherwise given strict return precautions. Patient understood and agrees with the plan of care. . 11/23 09:54 Order name: COVID-19/FLU A+B (Document "Date of Onset" if Symptomatic) [facility] 11/23 09:54 Order name: Strep; Complete Time: 10:25 [facility] 11/23 09:54 Order name: COVID-19/FLU A+B; Complete Time: 11:54 [facility] 11/23 10:22 Order name: Throat Culture [facility] Administered Medications: 09:59 Drug: Decadron (dexamethasone) 10 mg Route: IM; Site: right gluteus; elias Disposition: 12:22 Co-signature as Attending Physician, Oliver Self MD. rn Disposition Summary: 11/23/21 11:48 Discharge Ordered Location: Home [facility] Condition: Stable [facility] Diagnosis - Coronavirus infection, unspecified [facility] Followup: [facility] - With: Private Physician - When: 2 - 3 days - Reason: Recheck today's complaints, Continuance of care, Re-evaluation by your physician Discharge Instructions: - Discharge Summary Sheet [facility] - COVID-19 [facility] Forms: - Medication Reconciliation Form [facility] - Thank You Letter [facility] - Antibiotic Education [facility] - Prescription Opioid Use [facility] Prescriptions: - albuterol sulfate 90 mcg/actuation Inhalation HFA aerosol inhaler - inhale 2 puff by INHALATION route every 4 hours; 1 Pump; Refills: 0, Product [facility] Selection Permitted Signatures: Dispatcher [employer] Raulito Warner PA PA jmm Nieto, Roman, MD MD rn Mar-Stager, AKASH Sandoval RN, Iesha, RN RN ic1 Corrections: (The following items were deleted from the chart) 09:52 09:50 Allergies: Codeine; ic1 ic1
[2021-11-23 12:17] VITALS: BP 134/66; TEMP 99.6; O2SAT 99
== END 2021-11-23 12:02 | disposition home or self-care (01) ==
LOC: ER 09:32
DX: U07.1 COVID-19 (principal); I10 Essential (primary) hypertension; Z88.5 Allergy status to narcotic agent
CPT/HCPCS: 87070; 87081; 0240U; 96372; 99283; J1100 ×2